=== PATIENT | male | born 1955 | race Caucasian/White ===

== ENCOUNTER 2018-06-05 22:18 | Emergency (ER) | payer MEDICAID, SELFPAY ==
[2018-06-05 22:35] VITALS: BP 163/106; PULSE 60; RESP 18; TEMP 36.8; O2SAT 96
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
[2018-06-06] MEDS: LORazepam 1 MG TAB PO (01:22)
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
[2018-06-06 01:54] LABS: Abs Immature Grans 0.01 k/cumm (0.0-0.09); Absolute Basophil Count 0.01 k/cumm (0.0-0.2); Absolute Eosinophil Count 0.19 k/cumm (0.0-0.7); Absolute Lymphocyte Count 2.06 k/cumm (1.2-3.4); Absolute Monocyte Count 0.51 k/cumm (0.11-0.7); Absolute Neutrophil Count 3.12 k/cumm (1.2-6.7); Basophils % 0.2; Eosinophils % 3.2; HCT 42.9 % (40.0-50.0); HGB 14.6 g/dL (13.5-17.5); Immature Grans % 0.2; Lymphocytes % 34.9; Mean Corpuscular Hemoglobin 29.6 pg (27.0-33.0); Monocytes % 8.6; Neutrophils % 52.9; Platelet Count 206 x1000/uL (130-400); RBC 4.93 m/cumm (4.50-6.00)
[2018-06-06 02:04] LABS: Anion Gap 8.2 mmol/L (3-11); BUN 14 mg/dL (7-18); CO2 29.8 mmol/L (21.0-32.0); CREATININE 1.25 mg/dL (0.70-1.30); Calcium 8.6 mg/dL (8.5-10.1); Chloride 105 mmol/L (98-107); Estimated GFR 58.15 (mL/min/1.73m2); Glucose 116 mg/dL (70-100); Potassium 3.7 mmol/L (3.5-5.1); Sodium 143 mmol/L (136-145)
[2018-06-06 02:09] LABS: ETHANOL BLOOD < 3.0 mg/dL (<3)
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
--- NOTE | 2018-06-06 02:43 | NUR.NOTE ---
Nursing Note: 0100 settled for sleep, 0200 sleeping,
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
--- NOTE | 2018-06-06 03:19 | NUR.NOTE ---
Nursing Note: patient oob to bathroom without incident, returned to room and to sleep.
--- NOTE | 2018-06-06 04:07 | NUR.NOTE ---
Nursing Note: patient sleeping
--- NOTE | 2018-06-06 05:00 | NUR.NOTE ---
Nursing Note: patient sleeping
--- NOTE | 2018-06-06 06:58 | NUR.NOTE ---
Nursing Note: patient sleeping since last note.
[2018-06-06 07:41] LABS: *AMPHETAMINES SCREEN URINE Negative (Negative); *BARBITURATES SCREEN URINE Negative (Negative); *BENZODIAZEPINES SCREEN URINE Negative (Negative); Cannabinoids THC Negative (Negative); Cocaine Screen,Urine Negative (Negative); METHADONE URINE SCREEN Negative (Negative); OPIATES URINE SCREEN Negative (Negative)
[2018-06-06 07:45] LABS: Tricyclic Antidepressants Negative (Negative)
--- NOTE | 2018-06-06 10:48 | PDOC.ERCMPRO ---
Care Management Progress Note 0391-This CM reviewed Seb's chart and called the [facility]. None of the hospitals have been sent referrals. [facility] is not here yet. This CM called [facility] and spoke with Nadeem. Nadeem stated they have beds and requested a referral be faxed to [phone] for which it was. Called [facility] and left a message for the charge nurse to call back. At the time of this note, no call back. Called [facility] and spoke with Pamela. No beds and they are not accepting any referrals today. Called [facility] and spoke with María. They are closed to outside admissions at this time. Weston from [facility] has arrived. He is reaching out to [place] and will follow up with Jose. Dr. Willis aware of the above.
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
--- NOTE | 2018-06-06 11:26 | CMPROGNOTE_ITS ---
Care Management Progress Note 1044-This CM reviewed Seb's chart and called the [facility]. None of the hospitals have been sent referrals. [facility] is not here yet. This CM called [facility] and spoke with Nadeem. Nadeem stated they have beds and requested a referral be faxed to [phone] for which it was. Called [facility] and left a message for the charge nurse to call back. At the time of this note, no call back. Called [facility] and spoke with Pamela. No beds and they are not accepting any referrals today. Called [facility] and spoke with María. They are closed to outside admissions at this time. Weston from [facility] has arrived. He is reaching out to [facility] and will follow up with Jose. Dr. Willis aware of the above.
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
--- NOTE | 2018-06-06 14:12 | ED.GENADUL_ITS ---
Discharge Plan Disposition Patient Disposition: HOME Condition: Stable Discharge Details Chief Complaint: PsychEval Clinical Impression: Depression, Insomnia, PTSD (post-traumatic stress disorder) Primary Care Provider: Abram Trevino ED Provider: Arthur Willis Home Meds and New Rx's Prescriptions: No Action lisinopril 20 MG tablet 20 mg PO DAILY RF: 0 citalopram 10 MG tablet 20 mg PO DAILY RF: 0 Metoprolol Succinate 25 MG TAB.ER.24H 25 mg PO DAILY RF: 0 tamsulosin [Flomax] 0.4 mg capsule 0.8 mg PO DAILY Qty: 180 RF: 4 clonazepam 0.5 mg Tablet 0.5 mg PO HS RF: 0 Discharge Instructions Additional Instructions: You have agreed to a plan of outpatient safety as per the agreement with Weston from mental health services. Return or call any [facility] if you have a change in mood. Medical Decision Making Received signout from Dr. Teran. Please see her note regarding patient's initial presentation and plan of care. After overnight observation the patient began to feel improved, stated he was no longer suicidal. He is reevaluated by mental health and a plan for outpatient care established includin patient will see his counselor Amalia Cruz in [place] on Wednesday at 2 PM. The patient will contact Jenni Yuen for medication follow-up on June 13. He will call mental health services if any return of feelings of brought him into the emergency department. He is stable and improved. He is agreed to this plan of safety. He will be discharged home as per this plan. HPI General Mode of arrival: ambulatory . Date/Time Provider Initiated Documentation: 06/05/18 22:30 . Limitations to Documentation: no limitations . Information obtained by: patient . Related Data Home Medications Medication Instructions Recorded Confirmed lisinopril 20 mg PO DAILY tab-cap 03/13/16 06/05/18 citalopram 20 mg PO DAILY tab-cap 10/09/16 06/05/18 Metoprolol Succinate 25 mg PO DAILY tab-cap 04/02/17 06/05/18 tamsulosin 0.4 mg capsule 0.8 mg PO DAILY #180 tab-cap 05/11/18 06/05/18 clonazepam 0.5 mg PO HS 06/05/18 06/05/18 Previous Rx's Medication Instructions Recorded tamsulosin 0.4 mg capsule 0.8 mg PO DAILY #180 tab-cap 05/11/18 Allergies Allergy/AdvReac Type Severity Reaction Status Date / Time No Known Allergies Allergy Unverified 06/05/18 22:42 General Stated Complaint: PsychEval ABIEL: 3 PFSH Medical History PTSD (post-traumatic stress disorder) (Acute) Surgical History H/O shoulder surgery (Chronic) Social History Smoking and Tabacco status: Never alcohol intake: current alcohol intake frequency: a few times a month substance use type: does not use Course Vital Signs Temperature 36.8 C 06/05/18 22:35 Pulse 60 06/05/18 22:35 Respiratory Rate 18 06/05/18 22:35 Blood Pressure 163/106 H 06/05/18 22:35 Pulse Oximetry 96 06/05/18 22:35 Temperature 36.8 C 06/05/18 22:35 Temperature Source Temporal Artery Scan 06/05/18 22:35 Pulse 60 06/05/18 22:35 Respiratory Rate 18 06/05/18 22:35 Respiratory Effort 06/05/18 22:35 Blood Pressure 163/106 H 06/05/18 22:35 Blood Pressure Position Standing 06/05/18 22:35 Pulse Oximetry 96 06/05/18 22:35 Oxygen Delivery Method Room Air 06/05/18 22:35 Oxygen Flow Rate 0 06/05/18 22:35 Pain Level 0 06/06/18 01:22 Lab/Test Results Lab/Test Results: Laboratory Tests Range/Units 06/06/18 06/06/18 06/06/18 01:44 01:44 06:15 WBC (4.4-10.8) k/cumm 5.90 RBC (4.50-6.00) m/cumm 4.93 Hgb (13.5-17.5) g/dL 14.6 Hct (40.0-50.0) % 42.9 MCV (80-95) fL 87.0 MCH (27.0-33.0) pg 29.6 MCHC (32.0-36.0) g/dL 34.0 RDW (11.8-14.1) % 14.0 Plt Count (130-400) x1000/uL 206 MPV (8.0-11.0) fL 10.0 Immature Gran % 0.2 Neutrophils % 52.9 Lymphocytes % 34.9 Monocytes % 8.6 Eosinophils % 3.2 Basophils % 0.2 Absolute Neutrophils (1.2-6.7) k/cumm 3.12 Absolute Lymphocytes (1.2-3.4) k/cumm 2.06 Absolute Monocytes (0.11-0.7) k/cumm 0.51 Absolute Eosinophils (0.0-0.7) k/cumm 0.19 Absolute Basophils (0.0-0.2) k/cumm 0.01 Sodium (136-145) mmol/L 143 Potassium (3.5-5.1) mmol/L 3.7 Chloride (98-107) mmol/L 105 Carbon Dioxide (21.0-32.0) mmol/L 29.8 Anion Gap (3-11) mmol/L 8.2 BUN (7-18) mg/dL 14 Creatinine (0.70-1.30) mg/dL 1.25 Estimated GFR/1.73 m2 (mL/min/1.73m2) 58.15 Glucose (70-100) mg/dL 116 H Calcium (8.5-10.1) mg/dL 8.6 Troponin I Cancelled Urine Opiates Screen (Negative) Urine Methadone Screen (Negative) Ur Barbiturates Screen (Negative) Ur Tricyclics Screen (Negative) Ur Amphetamines Screen (Negative) U Benzodiazepines Scrn (Negative) Urine Cocaine Screen (Negative) Ur THC Screen (Negative) Ethyl Alcohol (<3) mg/dL < 3.0 Range/Units 06/06/18 06/06/18 07:15 10:15 WBC (4.4-10.8) k/cumm RBC (4.50-6.00) m/cumm Hgb (13.5-17.5) g/dL Hct (40.0-50.0) % MCV (80-95) fL MCH (27.0-33.0) pg MCHC (32.0-36.0) g/dL RDW (11.8-14.1) % Plt Count (130-400) x1000/uL MPV (8.0-11.0) fL Immature Gran % Neutrophils % Lymphocytes % Monocytes % Eosinophils % Basophils % Absolute Neutrophils (1.2-6.7) k/cumm Absolute Lymphocytes (1.2-3.4) k/cumm Absolute Monocytes (0.11-0.7) k/cumm Absolute Eosinophils (0.0-0.7) k/cumm Absolute Basophils (0.0-0.2) k/cumm Sodium (136-145) mmol/L Potassium (3.5-5.1) mmol/L Chloride (98-107) mmol/L Carbon Dioxide (21.0-32.0) mmol/L Anion Gap (3-11) mmol/L BUN (7-18) mg/dL Creatinine (0.70-1.30) mg/dL Estimated GFR/1.73 m2 (mL/min/1.73m2) Glucose (70-100) mg/dL Calcium (8.5-10.1) mg/dL Troponin I Cancelled Urine Opiates Screen (Negative) Negative Urine Methadone Screen (Negative) Negative Ur Barbiturates Screen (Negative) Negative Ur Tricyclics Screen (Negative) Negative Ur Amphetamines Screen (Negative) Negative U Benzodiazepines Scrn (Negative) Negative Urine Cocaine Screen (Negative) Negative Ur THC Screen (Negative) Negative Ethyl Alcohol (<3) mg/dL Sign Out Sign Out Data: Sign Out Comment: Follow up with mental health this morning pending final disposition. Last updated by Britney Teran DO at 06/06/18 05:15
[2018-06-06 14:21] VITALS: BP 152/84; PULSE 68; RESP 16; TEMP 37; O2SAT 97
[2018-06-06 14:28] VITALS: BP 152/84; PULSE 68; RESP 16; TEMP 37; O2SAT 97
--- NOTE | 2018-06-06 15:22 | PDOC.MHCN ---
Date of service: 06/06/18 Time of Service: 15:22 Mental Health Crisis Note Presenting Issue How did you arrive at the ED and why did you come: Self admitted last night due to suicidal ideation, thought fog, depression, recent self-reported trauma, and confusion. Precipitating Factors Seb initially was unable to say whether or not he was suicidal. Following acceptance to [facility], he denied he was suicidal and needed to be rescreened for a safety plan that he could not put together the previous night. Seb identified a counselor, an SALES AGENT INSURANCE, and a natural support system he could access. He denies a history of suicide attempts or plans. He reported feeling the crisis has passed. Disposition BEHAVIOR: cooperative, pleasant, appreciative EYE CONTACT: good MOOD: depressed AFFECT: constricted APPETITE: good SLEEP(trouble falling/staying asleep: poor but is going to discuss this with a provider. Was happy with medication received in ED Plan Seb will be released to himself and home. He has a follow-up appointment with his counselor on 06-10. He will see his SALES AGENT INSURANCE on 06-13. He agrees to call the emergency line if help is needed. He also has natural supports in [place] where most of his services are. He is aware [facility] can be reached there and has that number too. He left with a signed safety contract stating these services and access routes of service. Signature Clinician's Name/Title: Weston Mathis MA [facility]
--- NOTE | 2018-06-06 15:31 | PDOC.MHCN_ITS ---
Date of service: 06/06/18 Time of Service: 15:22 Mental Health Crisis Note Presenting Issue How did you arrive at the ED and why did you come: Self admitted last night due to suicidal ideation, thought fog, depression, recent self-reported trauma, and confusion. Precipitating Factors Seb initially was unable to say whether or not he was suicidal. Following acceptance to [facility], he denied he was suicidal and needed to be rescreened for a safety plan that he could not put together the previous night. Seb identified a counselor, an MIXING ROLL OPERATOR, and a natural support system he could access. He denies a history of suicide attempts or plans. He reported feeling the crisis has passed. Disposition BEHAVIOR: cooperative, pleasant, appreciative EYE CONTACT: good MOOD: depressed AFFECT: constricted APPETITE: good SLEEP(trouble falling/staying asleep: poor but is going to discuss this with a provider. Was happy with medication received in ED Plan Seb will be released to himself and home. He has a follow-up appointment with his counselor on 06-10. He will see his MIXING ROLL OPERATOR on 06-13. He agrees to call the emergency line if help is needed. He also has natural supports in [place] where most of his services are. He is aware [facility] can be reached there and has that number too. He left with a signed safety contract stating these services and access routes of service. Signature Clinician's Name/Title: Weston Mathis MA [facility]
== END 2018-06-06 14:30 | disposition home or self-care (01) ==
PROVIDERS: Physician Assistant; Emergency Provider Emergency Medicine; PCP Nurse Practitioner Family
DX: F32.9 Major depressive disorder, single episode, unspecified (principal); F43.11 Post-traumatic stress disorder, acute; G47.00 Insomnia, unspecified; R45.851 Suicidal ideations
CPT/HCPCS: 36415; 80048; 80307; 99283; 80320; 84484; 85025

== ENCOUNTER 2019-04-17 12:09 | Outpatient (CLI) | payer MEDICARE, MEDICAID, SELFPAY ==
[2019-04-18 09:30] LABS: PSA, Diagnostic 7.3 ng/mL (0.0-4.5)
== END 2019-04-17 12:29 ==
PROVIDERS: PCP Nurse Practitioner Family; Visit Provider Urology
DX: R97.20 Elevated prostate specific antigen [PSA] (principal); N40.1 Benign prostatic hyperplasia with lower urinary tract symptoms; N13.8 Other obstructive and reflux uropathy
CPT/HCPCS: 36415; 84153

== ENCOUNTER → 2019-04-24 08:02 | Outpatient (BNVA) | payer MEDICARE, MEDICAID, SELFPAY | PROVIDERS: PCP Nurse Practitioner Family; Referring Provider Nurse Practitioner Family; Visit Provider Urology | DX: R97.20 Elevated prostate specific antigen [PSA] (principal); N40.1 Benign prostatic hyperplasia with lower urinary tract symptoms; N13.8 Other obstructive and reflux uropathy | CPT/HCPCS: 99213 ==

== ENCOUNTER → 2020-04-23 12:57 | Outpatient (BNVA) | payer MEDICARE, MEDICAID, SELFPAY | PROVIDERS: PCP Nurse Practitioner Family; Referring Provider Nurse Practitioner Family; Visit Provider Nurse Practitioner Gerontology | DX: N40.1 Benign prostatic hyperplasia with lower urinary tract symptoms (principal); N13.8 Other obstructive and reflux uropathy; R97.20 Elevated prostate specific antigen [PSA] | CPT/HCPCS: 81003; 99214 ==

== ENCOUNTER 2024-01-05 12:12 | Emergency (ER) | payer MEDICARE, MEDICAID, SELFPAY ==
[2024-01-05 12:13] VITALS: BP 214/100; PULSE 72; RESP 15; TEMP 36.7; O2SAT 97
--- NOTE | 2024-01-05 12:25 | ED.GENADUL_ITS ---
Discharge Plan Disposition Patient Disposition: Home Condition: Stable Discharge Details Clinical Impression: Medical clearance for psychiatric admission Primary Care Provider: Abram Trevino ED Provider: Justina Cardona Home Meds and New Rx's Prescriptions: Continued lamotrigine 100 mg tablet 100 mg PO DAILY atorvastatin 10 mg tablet 10 mg PO DAILY lisinopril 20 MG tablet 20 mg PO DAILY citalopram 10 MG tablet 20 mg PO DAILY Metoprolol Succinate 25 MG TAB.ER.24H 25 mg PO DAILY finasteride 5 mg tablet 5 mg PO DAILY Qty: 90 4RF tamsulosin [Flomax] 0.4 mg capsule 0.8 mg PO DAILY Qty: 180 4RF clonazepam 0.5 mg Tablet 0.5 mg PO HS Discharge Instructions Instructions: Diet and health, Suicide prevention Additional Instructions: At this time you have been medically cleared. Labs are within normal limits. Please proceed to the care bed as previously directed. Follow up with primary care provider in 3-5 days. Return to ED sooner if any worsening or concerns. Referrals: [facility] [Provider Group] - 1 day Abram Trevino [Primary Care Provider] - Return if symptoms worsen HPI General Mode of arrival: ambulatory . Date/Time Provider Initiated Documentation: 01/05/24 12:21 . Limitations to Documentation: no limitations . Information obtained by: patient, RN/MD, RN notes reviewed and old records reviewed . HPI Narrative: 68-year-old male presents to the ER with a chief complaint of need for medical clearance exam due to suicidal ideation. He is already evaluated by [facility] and referred to a care bed. His last alcoholic drink was approximately 36 hours ago he denies any shakiness nausea vomiting blurry vision or seeing spots denies any headache. He does not appear to be in withdrawal at this time. He [facility] was requesting a medical clearance. Past medical history includes hypertension high cholesterol. Related Data Home Medications ?Medication ?Instructions ?Recorded ?Confirmed lisinopril 20 mg tablet 20 mg PO DAILY 03/13/16 04/23/20 citalopram 10 mg tablet 20 mg PO DAILY 10/09/16 04/23/20 Metoprolol Succinate 25 mg PO DAILY 04/02/17 04/23/20 clonazepam 0.5 mg tablet 0.5 mg PO HS 06/05/18 04/23/20 atorvastatin 10 mg tablet 10 mg PO DAILY 04/24/19 04/23/20 finasteride 5 mg tablet 5 mg PO DAILY prostate #90 tabs 05/02/19 04/23/20 tamsulosin 0.4 mg capsule (Flomax) 0.8 mg (2 x 0.4 mg) PO DAILY #180 04/12/20 04/23/20 tab-caps lamotrigine 100 mg tablet 100 mg PO DAILY 04/23/20 04/23/20 Previous Rx's ?Medication ?Instructions ?Recorded finasteride 5 mg tablet 5 mg PO DAILY prostate #90 tabs 05/02/19 tamsulosin 0.4 mg capsule (Flomax) 0.8 mg (2 x 0.4 mg) PO DAILY #180 04/12/20 tab-caps Allergies Allergy/AdvReac Type Severity Reaction Status Date / Time No Known Allergies Allergy Unverified 06/05/18 22:42 General Stated Complaint: PsychEval ABIEL: 2 Review of Systems All systems reviewed & are unremarkable except as noted in HPI and below Psychiatric Psychiatric: Reports as per HPI and Reports suicidal ideation Exam Narrative Exam Narrative: Constitutional: Alert and oriented x3. Appears stated age. Normal body habitus. Head: Normocephalic, no trauma. Eyes: Pupils PERRL, Red reflex noted, EOM's intact. Eyelids symmetrical without lesions, discharge, or swelling. ENT: Bilateral TM's WNL, External ear normal to inspection, no mastoid TTP, swelling, or erythema, Nasal turbinates WNL, no nasal discharge. Normal dentition, Posterior pharynx WNL, no exudate. Chest: RRR, Normal S1, S2, distal pulses intact. Resp: Lungs clear to auscultation bilaterally, no wheezes, rales, or rhonchi. Abdomen: Soft, non-distended, Normoactive bowel sounds all 4 quads. Musculoskeletal: Normal gait, Moves all 4 extremities without difficulty. Skin: No suspicious rashes or lesions. Capillary refill less than 2 sec. Neurologic: Cranial nerves II-XII intact. Alert and oriented x 3. Motor: No deficits noted. Sensory: Intact bilaterally all 4 extremities. Hematologic/Lymphatic: No ecchymosis, no lymphadenopathy. Course Vital Signs Vital signs: Vital Signs Temperature 36.7 C 01/05/24 12:13 Pulse 72 01/05/24 12:13 Respiratory Rate 15 01/05/24 12:13 Blood Pressure 214/100 H 01/05/24 12:13 Pulse Oximetry 97 01/05/24 12:13 Temperature 36.7 C 01/05/24 12:13 Pulse 72 01/05/24 12:13 Respiratory Rate 15 01/05/24 12:13 Respiratory Effort Normal 01/05/24 12:18 Blood Pressure 214/100 H 01/05/24 12:13 Blood Pressure Position Sitting 01/05/24 12:13 Pulse Oximetry 97 01/05/24 12:13 Oxygen Delivery Method Room Air 01/05/24 12:13 Oxygen Flow Rate 0 01/05/24 12:13 Comment PT reports lack of motivation causing him to miss his home meds 01/05/24 12:13 Medical Decision Making 68-year-old male presents to the ER with a chief complaint of need for medical clearance exam due to suicidal ideation. He is already evaluated by [facility] and referred to a care bed. His last alcoholic drink was approximately 36 hours ago he denies any shakiness nausea vomiting blurry vision or seeing spots denies any headache. He does not appear to be in withdrawal at this time. He [facility] services was requesting a medical clearance. Past medical history includes hypertension high cholesterol. CBC CMP urinalysis Tylenol salicylate TSH level ordered. Ethyl alcohol level. Patient does have a Patterns worker with them at this time. Labs are largely unremarkable, negative Tylenol salicylate ethyl alcohol level 3.1, will discharge after medical clearance at this time patient is deemed medically clear. This text was generated using [employer] dictation system, please disregard any oddities of phrase or misspellings. Lab Data Lab results reviewed: Yes I reviewed the patient's lab results. Labs: Laboratory Tests Range/Units 01/05/24 12:40 WBC (4.4-10.8) 10^3/uL 7.90 RBC (4.36-5.78) 10^6/uL 5.32 Hgb (13.5-17.5) g/dL 15.7 Hct (40.0-50.0) % 48.0 MCV (80-95) fL 90 MCH (27.0-33.0) pg 29.5 MCHC (32.0-36.0) % 32.7 RDW (11.8-14.1) % 14.2 H Plt Count (130-400) 10^3/uL 294 MPV (8.0-11.0) fL 9.3 Immature Gran % % 0.4 Neutrophils % % 62.9 Lymphocytes % % 24.7 Monocytes % % 9.5 Eosinophils % % 2.0 Basophils % % 0.5 Nucleated RBC % (0.0-0.3) % 0.0 Absolute Neutrophils (1.2-6.7) 10^3/uL 4.97 Absolute Lymphocytes (1.2-3.4) 10^3/uL 1.95 Absolute Monocytes (0.1-0.8) 10^3/uL 0.75 Absolute Eosinophils (0.0-0.7) 10^3/uL 0.16 Absolute Basophils (0.0-0.2) 10^3/uL 0.04 Sodium (136-145) mmol/L 139 Potassium (3.5-5.1) mmol/L 4.4 Chloride (98-107) mmol/L 103 Carbon Dioxide (21.0-32.0) mmol/L 28.8 Anion Gap (3-11) mmol/L 7.2 BUN (7-18) mg/dL 13 Creatinine (0.70-1.30) mg/dL 1.3 Est GFR (CKD-EPI 2020) (mL/min/1.73m2) 59.47 Glucose (74-106) mg/dL 96 Calcium (8.5-10.1) mg/dL 9.0 Total Bilirubin (0.2-1.0) mg/dL 1.44 H AST (15-37) U/L 29 ALT (16-63) U/L 49 Alkaline Phosphatase (46-116) U/L 118 H Total Protein (6.4-8.2) g/dL 7.8 Albumin (3.4-5.0) g/dL 3.9 TSH (0.36-3.74) uIU/mL 1.84 Salicylates (<2.8) mg/dL < 2.8 Acetaminophen (10-30) ug/mL < 2 Ethyl Alcohol (<10) mg/dL 3.1 Quality:SDOH Health Related Social Needs: No Data to Display PFSH All Active Problems (Updated 01/05/24 @ 13:15 by Justina Cardona NP) Medical clearance for psychiatric admission (Acute) Elevated PSA (Acute 03/13/16) BPH w urinary obs/LUTS (Acute 03/13/16) Medical History PTSD (post-traumatic stress disorder) Surgical History H/O shoulder surgery Social History Smoking/Tobacco Use Status: Never Smoking risk assessment performed?: Yes Alcohol Intake: current Alcohol Intake frequency: a few times a month Drug use: Never Substance use type: does not use PAWSS Have you Been Recently Intoxicated or Drunk Within the Last 30 days?: No Have you Ever Experienced Previous Episodes of Alcohol Withdrawal?: No Have you ever Experienced Withdrawal Seizures?: No Have you ever Experienced Delirium Tremens(DT)s?: No Have you ever undergone Alcohol Rehabilitation Treatment (i.e, inpt ot outpatient treatment programs)?: No Have you ever Experienced Blackouts?: No Have you ever Combined Alcohol with other Downers within the last 90 days?: No Have you ever Combined Alcohol with any other Substance of Abuse during the last 90 days?: No Positive Blood Alcohol level on Presentation? [PCS.BAL]: No Evidence of Increased Autonomic Activity (i.e. HR>120, tremor, sweating, agitation, nausea)?: No Result: 0
[2024-01-05 12:47] LABS: Abs Immature Grans 0.03 10^3/uL (0.0-0.06); Absolute Basophil Count 0.04 10^3/uL (0.0-0.2); Absolute Eosinophil Count 0.16 10^3/uL (0.0-0.7); Absolute Lymphocyte Count 1.95 10^3/uL (1.2-3.4); Absolute Monocyte Count 0.75 10^3/uL (0.1-0.8); Absolute Neutrophil Count 4.97 10^3/uL (1.2-6.7); Basophils % 0.5 %; HGB 15.7 g/dL (13.5-17.5); Immature Grans % 0.4 %; Lymphocytes % 24.7 %; MCH 29.5 pg (27.0-33.0); MCHC 32.7 % (32.0-36.0); MCV 90 fL (80-95); MPV 9.3 fL (8.0-11.0); Monocytes % 9.5 %; Neutrophils % 62.9 %; Platelet Count 294 10^3/uL (130-400); RBC 5.32 10^6/uL (4.36-5.78); RDW 14.2 % (11.8-14.1); RDW-SD 46.6 fL
[2024-01-05 13:10] LABS: ALT 49 U/L (16-63); AST 29 U/L (15-37); Albumin 3.9 g/dL (3.4-5.0); Alkaline Phosphatase 118 U/L (46-116); Anion Gap 7.2 mmol/L (3-11); BUN 13 mg/dL (7-18); Bilirubin, Total 1.44 mg/dL (0.2-1.0); CO2 28.8 mmol/L (21.0-32.0); CREATININE 1.3 mg/dL (0.70-1.30); Chloride 103 mmol/L (98-107); ETHANOL BLOOD 3.1 mg/dL (<10); Estimated GFR 59.47 (mL/min/1.73m2); Glucose 96 mg/dL (74-106); Potassium 4.4 mmol/L (3.5-5.1); Sodium 139 mmol/L (136-145); TSH (W/Ref FT4) 1.84 uIU/mL (0.36-3.74); Total Protein 7.8 g/dL (6.4-8.2)
[2024-01-05 13:11] LABS: Acetaminophen < 2 ug/mL (10-30); Salicylate < 2.8 mg/dL (<2.8)
== END 2024-01-05 13:25 | disposition home or self-care (01) ==
PROVIDERS: Emergency Provider Registered Nurse Emergency; PCP Nurse Practitioner Family
DX: R45.851 Suicidal ideations (principal); F32.A Depression, unspecified; I10 Essential (primary) hypertension
CPT/HCPCS: 80053; 99283; 80320; 80329; 84443; 85025